=== PATIENT | female | born 2000 | race Caucasian/White ===

== ENCOUNTER 2024-05-20 17:44 | Emergency (ER) | payer OTHER ==
[~2024-05-20] VITALS: Ht 149.9 cm; Wt 64.9 kg
[2024-05-20 18:16] LABS: BASOPHILS % 0.3 % (0.0-1.0); EOSINOPHILS # (AUTO) 0.1 (0.0-0.4); EOSINOPHILS % 1.3 % (0.0-6.0); HEMATOCRIT 44.6 % (34.2-44.1); HEMOGLOBIN 14.5 g/dL (12.0-16.0); LYMPHOCYTES # (AUTO) 1.7 (1.0-3.2); MEAN CORPUSCULAR HEMOGLOBIN 29.9 pg (28-32); MEAN CORPUSCULAR HGB CONC 32.5 g/dL (31-35); MONOCYTES # (AUTO) 0.4 (0.2-0.8); MONOCYTES % 5.1 % (4.4-11.3); NEUTROPHILS # (AUTO) 5.6 (2.1-6.9); PLATELET COUNT 234 x10e3/uL (140-360); RED BLOOD COUNT 4.85 x10e6/uL (3.6-5.1); RED CELL DISTRIBUTION WIDTH 12.5 % (11.7-14.4); WHITE BLOOD COUNT 7.92 x10e3/uL (4.8-10.8)
[2024-05-20 18:34] LABS: ALANINE AMINOTRANSFERASE 76 IU/L (0-55); ALBUMIN 4.3 g/dL (3.5-5.0); ALBUMIN/GLOBULIN RATIO 1.6 (0.8-2.0); ALKALINE PHOSPHATASE 69 IU/L (40-150); ANION GAP 14.7 mmol/L (8-16); BILIRUBIN,TOTAL 0.4 mg/dL (0.2-1.2); BLOOD UREA NITROGEN 9 mg/dL (7-26); BUN/CREATININE RATIO 10 (6-25); CALCIUM 9.4 mg/dL (8.4-10.2); CARBON DIOXIDE 23 mmol/L (22-29); CHLORIDE 109 mmol/L (98-107); CREATININE, SERUM 0.92 mg/dL (0.57-1.11); EST GLOMERULAR FILTRATION RATE 89 ML/MIN (>=60); GLUCOSE 98 mg/dL (74-118); LIPASE 51 U/L (8-78); POTASSIUM 3.7 mmol/L (3.5-5.1); SODIUM 143 mmol/L (136-145)
[2024-05-20] MEDS ORDERED: IOPAMIDOL 370 MG/ML 100 ML INFUS..BTL INJ ONE (18:47)
[2024-05-20 19:16] VITALS: PULSE 79; RESP 19; TEMP 98.4
[2024-05-20] MEDS: ONDANSETRON HCL INJ 2MG/ML 2ML 2 MG/ML VIAL IV STA (19:26)
[2024-05-20] MEDS: SODIUM CHLORIDE 0.9% 1000ML 1,000 ML IV ONE (19:26)
[2024-05-20] MEDS ORDERED: PANTOPRAZOLE SO40 MG PO (20:42)
[2024-05-20 21:01] VITALS: BP 124/87; PULSE 83; RESP 17; TEMP 98.2; O2SAT 100
== END 2024-05-20 21:07 | disposition home or self-care (01) ==
LOC: ER 17:56
DX: R04.2 Hemoptysis (principal); R10.13 Epigastric pain; R10.12 Left upper quadrant pain; K76.0 Fatty (change of) liver, not elsewhere classified; K21.9 Gastro-esophageal reflux disease without esophagitis; F41.9 Anxiety disorder, unspecified
CPT/HCPCS: 36415; 74177; 80053; 83690; 84702; 85025; 99284; J2405; J7030; Q9967

== ENCOUNTER → 2024-07-06 | Outpatient (REF) | payer OTHER ==
[~2024-07-06] MED LIST: PANTOPRAZOLE SO40 MG PO
== END ==
LOC: NM 07:58
PROVIDERS: ATTEND Nurse Practitioner
DX: R11.2 Nausea with vomiting, unspecified (principal); K29.60 Other gastritis without bleeding
CPT/HCPCS: 78227; 81025; A9537

== ENCOUNTER → 2024-07-19 | Day surgery (SDC) | payer OTHER ==
[2024-07-16 09:15] LABS: BASOPHILS % 0.6 % (0.0-1.0); EOSINOPHILS # (AUTO) 0.2 (0.0-0.4); EOSINOPHILS % 2.4 % (0.0-6.0); HEMATOCRIT 42.7 % (34.2-44.1); HEMOGLOBIN 13.7 g/dL (12.0-16.0); LYMPHOCYTES # (AUTO) 2.1 (1.0-3.2); LYMPHOCYTES % 33.1 % (18.0-39.1); MEAN CORPUSCULAR HEMOGLOBIN 29.8 pg (28-32); MEAN CORPUSCULAR HGB CONC 32.1 g/dL (31-35); MONOCYTES # (AUTO) 0.4 (0.2-0.8); MONOCYTES % 5.7 % (4.4-11.3); NEUTROPHILS # (AUTO) 3.7 (2.1-6.9); NEUTROPHILS % 57.9 % (38.7-80.0); PLATELET COUNT 237 x10e3/uL (140-360); RED BLOOD COUNT 4.59 x10e6/uL (3.6-5.1); WHITE BLOOD COUNT 6.37 x10e3/uL (4.8-10.8)
[~2024-07-19] MED LIST changes: +ABILIFY2 MG PO; +ACETAZOLAMIDE500 M1 PO; +BUPROPION HCL150 M2 PO; +CETIRIZINE HCL10 M1 PO; +DOXEPIN HCL25 MG PO; +FENTANYL CITRATE/PF 100MCG/2 ML INJ ONE; +GLYCOPYRROLATE INJ 0.2 MG/ML VIAL ONE; +HYDROXYZINE PAM25 MG PO; +INDERAL LA60 MG PO; +LACTATED RINGER'S 1,000 ML ONE; +LIDOCAINE HCL 2% LOCAL INJ 5 ML SDV VIAL INJ ONE; +METOCLOPRAMIDE HCL 10 MG/2ML VIAL ONE; +MIDAZOLAM HCL 2 MG/2 ML VIAL ONE; +ONDANSETRON ODT8 MG PO; +PROPOFOL IV EMULSION 10 MG/ML 20 ML VIAL ONE; +QULIPTA60 MG PO; +TOPAMAX50 MG PO; +TRAZODONE HCL100 MG PO; +UBRELVY100 MG PO; +VENLAFAXINE HCL75 M2 PO; +WELLBUTRIN XL300 MG PO
[2024-07-19 14:30] VITALS: TEMP 98.1
[2024-07-19 15:00] VITALS: BP 114/71; PULSE 79; RESP 12; O2SAT 100
[2024-07-24 07:13] LABS: ENDOMYSIAL ANTIBODIES, IGA Negative (Negative)
[2024-07-24 08:17] LABS: IMMUNOGLOBULIN A 139 mg/dL (87-352); TISSUE TRANSGLUTAMINASE IGA AB <2 U/mL (0-3)
== END | disposition home or self-care (01) ==
LOC: OR 05:00
PROVIDERS: ATTEND Internal Medicine Gastroenterology
DX: K29.50 Unspecified chronic gastritis without bleeding (principal); K29.80 Duodenitis without bleeding; K20.90 Esophagitis, unspecified without bleeding; K21.9 Gastro-esophageal reflux disease without esophagitis; K76.0 Fatty (change of) liver, not elsewhere classified; G43.909 Migraine, unspecified, not intractable, without status migrainosus; F41.9 Anxiety disorder, unspecified; F32.A Depression, unspecified; Z88.2 Allergy status to sulfonamides; Z91.040 Latex allergy status; Z01.812 Encounter for preprocedural laboratory examination; Z79.1 Long term (current) use of non-steroidal anti-inflammatories (NSAID); Z79.899 Other long term (current) drug therapy
CPT/HCPCS: 36415; 43239; 81025; 82784; 83516; 85025; 86256; J2003; J2470; J2704; J2765; J3010; J7121; J2250